=== PATIENT | male | born 1970 | race Caucasian/White ===

== ENCOUNTER 2019-03-13 02:24 | Emergency (ER) | payer OTHER ==
[~2019-03-13] VITALS: Ht 170.2 cm; Wt 120.2 kg
[2019-03-13 02:32] VITALS: Ht 170.2 cm; Wt 120.2 kg
[2019-03-13 03:48] LABS: BASOPHIL % 0.5 % (0-2); PLATELET COUNT 310 x10^3mcL (130-400); RED CELL DISTRIBUTION WIDTH 12.8 % (11.5-14.5)
[2019-03-13 03:56] LABS: CALCIUM 8.4 mg/dL (8.5-10.1); CARBON DIOXIDE 25.8 mmol/L (21-32); CREATININE SERUM 1.5 mg/dL (0.7-1.3); POTASSIUM SERUM 4.3 mmol/L (3.5-5.1)
[2019-03-13 04:00] LABS: ALBUMIN 3.6 g/dL (3.4-5.0); BILIRUBIN TOTAL 0.31 mg/dL (0.20-1.00); TOTAL PROTEIN, SERUM 7.1 g/dL (6.4-8.2)
[2019-03-13 06:05] VITALS: BP 136/89
== END 2019-03-13 06:05 | disposition home or self-care (01) ==
LOC: ED 02:24
PROVIDERS: Emergency Medicine
DX: K80.70 Calculus of gallbladder and bile duct without cholecystitis without obstruction (principal); F17.210 Nicotine dependence, cigarettes, uncomplicated; F15.10 Other stimulant abuse, uncomplicated; I10 Essential (primary) hypertension
CPT/HCPCS: J2270; J2405; J7030

== ENCOUNTER 2019-03-13 23:11 | Emergency (ER) | payer OTHER ==
[~2019-03-13] VITALS: Ht 167.6 cm; Wt 111.1 kg
[2019-03-13 23:19] VITALS: Ht 167.6 cm; Wt 111.1 kg
[2019-03-14 00:25] LABS: BASOPHIL % 0.6 % (0-2); PLATELET COUNT 311 x10^3mcL (130-400); RED CELL DISTRIBUTION WIDTH 12.9 % (11.5-14.5)
[2019-03-14 00:27] LABS: CALCIUM 8.8 mg/dL (8.5-10.1); CARBON DIOXIDE 29.6 mmol/L (21-32); CREATININE SERUM 1.6 mg/dL (0.7-1.3)
[2019-03-14 00:31] LABS: ALBUMIN 3.9 g/dL (3.4-5.0); BILIRUBIN TOTAL 0.5 mg/dL (0.20-1.00); TOTAL PROTEIN, SERUM 7.6 g/dL (6.4-8.2)
[2019-03-14 02:46] VITALS: BP 128/76
== END 2019-03-14 03:32 | disposition home or self-care (01) ==
LOC: ED 23:11
DX: R10.11 Right upper quadrant pain (principal); J98.01 Acute bronchospasm; F17.210 Nicotine dependence, cigarettes, uncomplicated; I10 Essential (primary) hypertension; R11.10 Vomiting, unspecified
CPT/HCPCS: 99406; J1885; J2930; J7030; J7613; Q0092

== ENCOUNTER 2019-03-19 18:56 | Emergency (ER) | payer OTHER ==
[~2019-03-19] VITALS: Ht 170.2 cm; Wt 74.4 kg
[2019-03-19 19:02] VITALS: Ht 170.2 cm; Wt 74.4 kg
[2019-03-19 19:43] LABS: CALCIUM 9.1 mg/dL (8.5-10.1); CARBON DIOXIDE 30.5 mmol/L (21-32); CREATININE SERUM 1.7 mg/dL (0.7-1.3); POTASSIUM SERUM 3.8 mmol/L (3.5-5.1)
[2019-03-19 19:48] LABS: ALBUMIN 3.7 g/dL (3.4-5.0); BASOPHIL % 0.4 % (0-2); BILIRUBIN TOTAL 0.62 mg/dL (0.20-1.00); PLATELET COUNT 315 x10^3mcL (130-400); RED CELL DISTRIBUTION WIDTH 13.2 % (11.5-14.5); TOTAL PROTEIN, SERUM 7.1 g/dL (6.4-8.2)
[2019-03-19 20:07] LABS: microscopic required? NO
[2019-03-19 20:34] LABS: UA SPECIFIC GRAVITY 1.025 (1.005-1.035); urine erythrocyte NEGATIVE (NEGATIVE)
[2019-03-19 22:19] VITALS: BP 108/61
== END 2019-03-19 22:19 | disposition home or self-care (01) ==
LOC: ED 18:56
PROVIDERS: Emergency Medicine
DX: R53.1 Weakness (principal); K59.00 Constipation, unspecified; E16.2 Hypoglycemia, unspecified; I10 Essential (primary) hypertension; F17.210 Nicotine dependence, cigarettes, uncomplicated; L84 Corns and callosities
CPT/HCPCS: J7030; Q0092

== ENCOUNTER 2019-05-30 21:29 | Emergency (ER) | payer OTHER ==
[~2019-05-30] VITALS: Ht 170.2 cm; Wt 105.2 kg
[2019-05-30 21:36] VITALS: Ht 170.2 cm; Wt 105.2 kg
[2019-05-30 22:48] LABS: BASOPHIL % 0.2 % (0-2); PLATELET COUNT 287 x10^3mcL (130-400)
[2019-05-30 23:03] LABS: CALCIUM 8.6 mg/dL (8.5-10.1); CARBON DIOXIDE 31.4 mmol/L (21-32); CREATININE SERUM 1.4 mg/dL (0.7-1.3); POTASSIUM SERUM 3.8 mmol/L (3.5-5.1)
[2019-05-30 23:08] LABS: ALBUMIN 3.8 g/dL (3.4-5.0); BILIRUBIN TOTAL 0.4 mg/dL (0.20-1.00); TOTAL PROTEIN, SERUM 7.5 g/dL (6.4-8.2)
[2019-05-31 00:34] VITALS: BP 162/78
[2019-05-31 00:57] LABS: AMPHETAMINE QUAL UR POSITIVE (See below)
== END 2019-05-31 00:34 | disposition home or self-care (01) ==
LOC: ED 21:29
PROVIDERS: Emergency Medicine
DX: J20.9 Acute bronchitis, unspecified (principal); J44.9 Chronic obstructive pulmonary disease, unspecified; F17.210 Nicotine dependence, cigarettes, uncomplicated; I10 Essential (primary) hypertension
CPT/HCPCS: 99406; J2930; J7620

== ENCOUNTER 2019-09-12 11:51 | Emergency (ER) | payer OTHER ==
[~2019-09-12] VITALS: Ht 175.3 cm; Wt 104.3 kg
[2019-09-12 12:23] VITALS: Ht 175.3 cm; Wt 104.3 kg
[2019-09-12 15:47] VITALS: BP 161/107
== END 2019-09-12 15:47 | disposition home or self-care (01) ==
LOC: ED 11:51
DX: S83.92XA Sprain of unspecified site of left knee, initial encounter (principal); J44.9 Chronic obstructive pulmonary disease, unspecified; I10 Essential (primary) hypertension; G89.29 Other chronic pain; M54.5 Low back pain; F17.210 Nicotine dependence, cigarettes, uncomplicated; Z71.6 Tobacco abuse counseling; W22.8XXA Striking against or struck by other objects, initial encounter; Y93.89 Activity, other specified; Y92.89 Other specified places as the place of occurrence of the external cause; Y99.8 Other external cause status
CPT/HCPCS: 99406